=== PATIENT | male | born 1950 | race Two or more races ===

== ENCOUNTER 2025-02-02 17:17 | Inpatient (IN) | payer OTHER ==
[~2025-02-02] VITALS: Ht 170.2 cm; Wt 77.1 kg
[2025-02-02] MEDS ORDERED: LASIX20 MG (17:29)
[2025-02-02] MEDS ORDERED: ALDACTONE25 MG (17:29)
[2025-02-02] MEDS ORDERED: AMLODIPINE-OLM1 EAC2 (17:29)
[2025-02-02] MEDS ORDERED: NORVASC2.5 M1 (17:29)
--- NOTE | 2025-02-02 17:32 | NUR ---
PTE ALERTA Y ORIENTADO X 3 ESFERAS EN [place] EN COMPANIA DE FAMILIAR QUIEN REFIERE PIES HINCHADOS Y FALTA DE AIRE,REFIRE NO THORNTON EVACUADO HAC 30 RUBY Y NAUSEAS.SE OBSERVAN PIES CON EDEMA Y PIEL ABIERTA EN AMBOS PIES.PTE ESTUVO HOSPITALIZADO EN [facility] EN DONDE PTE REHUSO [place] MEDICO YA QUE REFIERE DREW NO LE HACIAN NADA.REFIERE LE COLOCARON MARCAPASO EL Dec EN [place].
[2025-02-02] MEDS ORDERED: CEFTRIAXONE SODIUM 1,000 MG VIAL IV ONE (18:00)
[2025-02-02] MEDS ORDERED: CEFTRIAXONE SODIUM 1,000 MG VIAL ONE (18:04)
[2025-02-02] MEDS ORDERED: ONDANSETRON HCL 2 MG/ML VIAL ONE (18:21)
[2025-02-02] MEDS ORDERED: FAMOTIDINE/PF 20 MG/2 ML VIAL ONE (18:21)
[2025-02-02 18:25] LABS: HEMATOCRIT 36.1 % (39.0-48.0); HEMOGLOBIN 12.2 g/dL (13-16.00); MEAN CELL VOLUME 105.7 fL (80.0-100.00); MEAN CORPUSCULAR HEMOGLOBIN 35.7 pg (27.00-32.0); MEAN CORPUSCULAR HGB CONC 33.8 g/dl (32.0-36.0); RED BLOOD COUNT 3.41 M/uL (4.00-6.00); RED CELL DISTRIBUTION WIDTH 17.9 % (11.5-14.5)
[2025-02-02 18:28] LABS: ERYTHROCYTE SEDIMENTATION RATE 101 mm/hr; PLATELET COUNT 111 K/uL (150-450)
[2025-02-02] MEDS ORDERED: ONDANSETRON HCL 2 MG/ML VIAL IV ONE (18:30)
[2025-02-02] MEDS ORDERED: FAMOtidine 10 MG/ML (4ML VIAL) IV ONE (18:30)
--- NOTE | 2025-02-02 18:32 | NUR ---
SE EDUCA A PTE SOBRE [place] MEDICO, SE JOSE MUESTRAS DE LABORATORIO UTILIZANDO MEDIDAS ASEPTICAS. SE COLOCA H/L ALIVIA DE EDEMA. SE ADMINISTRAN MEDICAMENTOS ISMAEL ORDEN MEDICA. SE NOTIFICA RX Y CT PENDIENTES A REALIZAR.
[2025-02-02 18:49] LABS: INR 1.52; PARTIAL THROMBOPLASTIN TIME 32.9 SECONDS (22.0-34.0)
[2025-02-02 18:50] LABS: BILIRUBIN TOTAL 4.07 mg/dL (0.3-1.2); CALCIUM 9.4 mg/dL (8.5-10.1); CREATININE SERUM 3.16 mg/dL (0.70-1.30); GFR 19.31; GLOBULINA 5.2 G/DL (2.4-3.5); POTASSIUM 4.27 mEq/L (3.5-5.1); TOTAL PROTEIN 7.2 gm/dL (6.4-8.2)
[2025-02-02 18:52] LABS: C-REACTIVE PROTEIN 2.01 MG/DL (0.00-0.29)
[2025-02-02 18:52] LABS: PH,URINE 5.5 (5.0-8.0); URINE APPEARANCE Cloudy; URINE BILIRRUBIN Small (NEGATIVE); URINE BLOOD Trace; URINE COLOR Dark Yellow; URINE GLUCOSE Negative (NEGATIVE); URINE KETONE Negative (NEGATIVE); URINE LEUKOCYTE Trace; URINE NITRATE Negative; URINE PROTEIN 30 (NEGATIVE)
[2025-02-02 18:56] LABS: URINE BACTERIA 23.2 uL (0.0-1933); URINE CAST 4.12 uL (0.0-1.40); URINE EPITHELIAL CELLS 18.9 uL (0.0-38.8); URINE RBC 5.4 uL (0.0-20.8); URINE WBC 16.3 uL (0.0-23.2)
[2025-02-02 19:10] LABS: PROTHROMBIN TIME 16.1 SECONDS (9.0-11.5)
[2025-02-02 19:34] LABS: URINE CRYSTALS FEW /HPF
[2025-02-02 19:35] LABS: URINE MUCUS SCANT; URINE YEAST FEW /hpf
[2025-02-02] MEDS ORDERED: CEFTRIAXONE SODIUM 2,000 MG in 0.9 % SODIUM CHLORIDE 100 ML IV SCH (23:43)
[2025-02-02] MEDS ORDERED: LACTULOSE 10 G/15 ML ML PO SCH (23:43)
[2025-02-02] MEDS ORDERED: PANTOPRAZOLE SODIUM 40 MG/VIAL VIAL IV SCH (23:44)
[2025-02-02] MEDS ORDERED: FUROsemide 20 MG/2 ML VIAL IV SCH (23:44)
[2025-02-02] MEDS ORDERED: ONDANSETRON HCL 4 MG in 0.9 % SODIUM CHLORIDE 50 ML IV PRN (23:45)
[2025-02-03] MEDS ORDERED: FUROsemide 20 MG/2 ML VIAL ONE (00:23)
[2025-02-03] MEDS ORDERED: CEFTRIAXONE SODIUM 1,000 MG VIAL ONE (00:23)
[2025-02-03] MEDS ORDERED: LACTULOSE 20 G/30 ML BLIST.PACK ONE (00:23)
[2025-02-03 01:03] VITALS: BP 147/67; O2SAT 96
[2025-02-03 01:22] LABS: ALBUMIN 1.7 gm/dL (3.4-5.0); BILIRUBIN TOTAL 3.61 mg/dL (0.3-1.2); BILIRUBIN,CONJUGATED 2.64 mg/dL (0.0-0.2); BILIRUBIN,UNCONJUGATED 0.97 mg/dL (0.0-0.6); MAGNESIUM 2.1 mg/dL (1.8-2.4); TOTAL PROTEIN 6.5 gm/dL (6.4-8.2)
[2025-02-03 06:48] VITALS: BP 135/83
[2025-02-03] MEDS ORDERED: MINERAL OIL 30 ML BLIST.PACK PO STA (07:30)
[2025-02-03] MEDS ORDERED: LACTULOSE 20 G/30 ML BLIST.PACK PO STA (07:30)
[2025-02-03] MEDS ORDERED: MAGNESIUM HYDROXIDE 30 ML BLIST.PACK PO STA (07:31)
[2025-02-03 08:45] VITALS: BP 128/76
[2025-02-03] MEDS ORDERED: POLYETHYLENE GLYCOL 3350 17 GM BLIST.PACK PO SCH (09:00)
[2025-02-03] MEDS ORDERED: SPIRONOLACTONE 25 MG TABLET PO SCH (09:00)
[2025-02-03] MEDS ORDERED: FUROsemide 20 MG/2 ML VIAL IV SCH (12:33)
[2025-02-03] MEDS ORDERED: ALBUMIN HUMAN 0.25GM/ML (50ML) VIAL IV SCH (12:34)
[2025-02-03] MEDS ORDERED: TRAMADOL HCL 50 MG TABLET PO PRN (16:00)
[2025-02-03 17:10] VITALS: BP 127/84; O2SAT 100
[2025-02-04 00:10] VITALS: BP 104/72
[2025-02-04 06:18] LABS: HEMATOCRIT 30.8 % (39.0-48.0); HEMOGLOBIN 10.7 g/dL (13-16.00); MEAN CELL VOLUME 104.6 fL (80.0-100.00); MEAN CORPUSCULAR HEMOGLOBIN 36.3 pg (27.00-32.0); MEAN CORPUSCULAR HGB CONC 34.7 g/dl (32.0-36.0); RED BLOOD COUNT 2.95 M/uL (4.00-6.00); RED CELL DISTRIBUTION WIDTH 17.8 % (11.5-14.5)
[2025-02-04 06:49] LABS: PLATELET COUNT 103 K/uL (150-450)
[2025-02-04 06:55] LABS: ALBUMIN 2.2 gm/dL (3.4-5.0); BILIRUBIN TOTAL 3.98 mg/dL (0.3-1.2); CALCIUM 8.9 mg/dL (8.5-10.1); CREATININE SERUM 3.25 mg/dL (0.70-1.30); GFR 18.69; GLOBULINA 4.4 G/DL (2.4-3.5); MAGNESIUM 2.6 mg/dL (1.8-2.4); PHOSPHOROUS 4.6 mg/dL (2.5-4.9); POTASSIUM 5.05 mEq/L (3.5-5.1); TOTAL PROTEIN 6.6 gm/dL (6.4-8.2)
[2025-02-04 08:47] VITALS: BP 125/81; O2SAT 95
[2025-02-04] MEDS ORDERED: LACTULOSE 20 G/30 ML BLIST.PACK PO SCH (09:00)
[2025-02-04 17:10] VITALS: BP 135/83; O2SAT 96
[2025-02-04 20:43] LABS: BILI PERITONEAL FLUID 0.53 mg/dl; TP PERITONEAL FLUID 0.9 g/dl
[2025-02-05 01:09] VITALS: BP 134/77
[2025-02-05 05:43] LABS: HEMATOCRIT 31.5 % (39.0-48.0); HEMOGLOBIN 10.5 g/dL (13-16.00); MEAN CELL VOLUME 106.1 fL (80.0-100.00); MEAN CORPUSCULAR HEMOGLOBIN 35.3 pg (27.00-32.0); MEAN CORPUSCULAR HGB CONC 33.3 g/dl (32.0-36.0); RED BLOOD COUNT 2.97 M/uL (4.00-6.00); RED CELL DISTRIBUTION WIDTH 17.4 % (11.5-14.5)
[2025-02-05 06:28] LABS: ALBUMIN 2.6 gm/dL (3.4-5.0); BILIRUBIN TOTAL 3.75 mg/dL (0.3-1.2); CALCIUM 8.8 mg/dL (8.5-10.1); CREATININE SERUM 3.43 mg/dL (0.70-1.30); GFR 17.57; GLOBULINA 4.2 G/DL (2.4-3.5); POTASSIUM 5.29 mEq/L (3.5-5.1); TOTAL PROTEIN 6.8 gm/dL (6.4-8.2)
[2025-02-05 07:20] LABS: PLATELET COUNT 105 K/uL (150-450)
[2025-02-05 09:42] VITALS: BP 140/76; O2SAT 97
[2025-02-05 18:01] LABS: ALBUMIN 2.6 gm/dL (3.4-5.0); BILIRUBIN TOTAL 3.14 mg/dL (0.3-1.2); CALCIUM 8.8 mg/dL (8.5-10.1); CREATININE SERUM 3.47 mg/dL (0.70-1.30); GFR 17.33; GLOBULINA 4.6 G/DL (2.4-3.5); POTASSIUM 4.29 mEq/L (3.5-5.1); TOTAL PROTEIN 7.2 gm/dL (6.4-8.2)
[2025-02-05 18:11] VITALS: BP 135/80
[2025-02-05 19:23] LABS: PLEURAL FLUID APPEARANCE CLOUDY; PLEURAL FLUID COLOR YELLOW
[2025-02-05 20:52] LABS: MONONUCLEAR 97 %; POLYMORPHONUCLEAR 3 %
[2025-02-06 02:39] VITALS: BP 124/75; O2SAT 96
[2025-02-06 08:51] LABS: ALBUMIN 2.3 gm/dL (3.4-5.0); BILIRUBIN TOTAL 3.12 mg/dL (0.3-1.2); CALCIUM 8.6 mg/dL (8.5-10.1); CREATININE SERUM 3.21 mg/dL (0.70-1.30); GFR 18.96; GLOBULINA 4.4 G/DL (2.4-3.5); POTASSIUM 4.32 mEq/L (3.5-5.1); TOTAL PROTEIN 6.7 gm/dL (6.4-8.2)
[2025-02-06 09:01] VITALS: BP 148/74; O2SAT 96
== END 2025-02-06 12:54 | disposition home or self-care (01) | DRG 435 ==
LOC: ER 17:20 → MEDJ 23:45
PROVIDERS: General Practice; Internal Medicine; Radiology Vascular & Interventional Radiology; ADMIT Internal Medicine; ATTEND Internal Medicine
PROC: BW21ZZZ Computerized Tomography (CT Scan) of Abdomen and Pelvis (ICD-10-PCS; 2025-02-02)
PROC: BT4JZZZ Ultrasonography of Kidneys and Bladder (ICD-10-PCS; 2025-02-02)
PROC: 4A12X4Z Monitoring of Cardiac Electrical Activity, External Approach (ICD-10-PCS; 2025-02-03)
PROC: 0W9G3ZX Drainage of Peritoneal Cavity, Percutaneous Approach, Diagnostic (ICD-10-PCS; principal; 2025-02-04)
PROC: 0W993ZX Drainage of Right Pleural Cavity, Percutaneous Approach, Diagnostic (ICD-10-PCS; 2025-02-05)
DX: C22.9 Malignant neoplasm of liver, not specified as primary or secondary (principal); K76.7 Hepatorenal syndrome; R18.8 Other ascites; N17.9 Acute kidney failure, unspecified; L03.115 Cellulitis of right lower limb; I50.20 Unspecified systolic (congestive) heart failure; J90 Pleural effusion, not elsewhere classified; K92.2 Gastrointestinal hemorrhage, unspecified; N18.9 Chronic kidney disease, unspecified; G47.33 Obstructive sleep apnea (adult) (pediatric); Z95.0 Presence of cardiac pacemaker; F10.20 Alcohol dependence, uncomplicated; F17.200 Nicotine dependence, unspecified, uncomplicated

== ENCOUNTER 2025-02-12 15:45 | Inpatient (IN) | payer OTHER ==
[~2025-02-12] VITALS: Ht 177.8 cm; Wt 63.5 kg
[~2025-02-12 15:45] MED LIST: ALDACTONE25 MG; AMLODIPINE-OLM1 EAC2; LASIX20 MG; NORVASC2.5 M1
[2025-02-12] MEDS ORDERED: PROTONIX20 MG (15:54)
[2025-02-12] MEDS ORDERED: CRESTOR40 MG (15:54)
[2025-02-12] MEDS ORDERED: COZAAR25 MG (15:54)
[2025-02-12] MEDS ORDERED: LEVOTHYROXINE25 MCG (15:55)
--- NOTE | 2025-02-12 15:55 | NUR ---
SE RECIBE PTE EN AMBULANCIA ALERTA Y ORIENTADO X3, REFIERE ULCERAS CON SANGRADO EN AMBOS PIES Y EDEMA. SE JOSE SV Y SE UBICA
[2025-02-12] MEDS ORDERED: CEFTRIAXONE SODIUM 1,000 MG VIAL IV ONE (16:30)
[2025-02-12] MEDS ORDERED: CEFTRIAXONE SODIUM 1,000 MG VIAL ONE (17:02)
[2025-02-12 17:05] LABS: HEMATOCRIT 33.2 % (39.0-48.0); HEMOGLOBIN 11.2 g/dL (13-16.00); MEAN CORPUSCULAR HEMOGLOBIN 35.4 pg (27.00-32.0); MEAN CORPUSCULAR HGB CONC 33.8 g/dl (32.0-36.0); RED BLOOD COUNT 3.16 M/uL (4.00-6.00); RED CELL DISTRIBUTION WIDTH 16.5 % (11.5-14.5)
[2025-02-12 17:06] LABS: PLATELET COUNT 109 K/uL (150-450)
--- NOTE | 2025-02-12 17:17 | NUR ---
SE EJECUTAN ORDENES MEDICAS EN ESCALANTE TOTALIDAD
[2025-02-12 17:28] LABS: ALBUMIN 2.2 gm/dL (3.4-5.0); BILIRUBIN TOTAL 3.67 mg/dL (0.3-1.2); BILIRUBIN,CONJUGATED 2.52 mg/dL (0.0-0.2); BILIRUBIN,UNCONJUGATED 1.15 mg/dL (0.0-0.6); CALCIUM 8.2 mg/dL (8.5-10.1); CREATININE SERUM 3.15 mg/dL (0.70-1.30); GFR 19.38; GLOBULINA 5.2 G/DL (2.4-3.5); POTASSIUM 3.98 mEq/L (3.5-5.1); TOTAL PROTEIN 7.4 gm/dL (6.4-8.2)
[2025-02-12 17:32] LABS: INR 1.69; PARTIAL THROMBOPLASTIN TIME 37.5 SECONDS (22.0-34.0)
[2025-02-12 17:33] LABS: PROTHROMBIN TIME 17.7 SECONDS (9.0-11.5)
[2025-02-12] MEDS ORDERED: ALBUMIN HUMAN-25 0.25GM/ML (50ML) VIAL IV SCH (20:15)
[2025-02-12] MEDS ORDERED: PIPERACILLIN/TAZOBACTAM SODIUM 2.25 GM in DEXTROSE 5 % IN WATER 50 ML IV SCH (20:16)
[2025-02-12] MEDS ORDERED: POLYETHYLENE GLYCOL 3350 17 GM BLIST.PACK PO ONE (20:30)
[2025-02-12] MEDS ORDERED: FUROsemide 20 MG/2 ML VIAL IV SCH (21:00)
[2025-02-13 00:49] LABS: PH,URINE 5.5 (5.0-8.0); URINE APPEARANCE Clear; URINE BILIRRUBIN Negative (NEGATIVE); URINE BLOOD Negative; URINE COLOR Dark Yellow; URINE KETONE Negative (NEGATIVE); URINE LEUKOCYTE Trace; URINE NITRATE Negative; URINE PROTEIN Negative (NEGATIVE); URINE UROBILINOGEN 0.2 E.U./dl
[2025-02-13 00:52] LABS: URINE BACTERIA 94.2 uL (0.0-1933); URINE RBC 212.1 uL (0.0-20.8); URINE WBC 9.8 uL (0.0-23.2)
[2025-02-13 00:59] LABS: URINE CAST 1.03 uL (0.0-1.40); URINE GLUCOSE >=1000 MG/DL (NEGATIVE); URINE YEAST MANY /hpf
[2025-02-13 02:34] VITALS: BP 130/70; O2SAT 100
[2025-02-13 08:12] VITALS: BP 121/77; O2SAT 96
[2025-02-13] MEDS ORDERED: SPIRONOLACTONE 25 MG TABLET PO SCH (09:00)
[2025-02-13] MEDS ORDERED: AMLODIPINE BESYLATE 5 MG TABLET PO SCH (09:00)
[2025-02-13] MEDS ORDERED: FAMOTIDINE/PF 20 MG in 0.9 % SODIUM CHLORIDE 8 ML IV PUSH SCH (09:00)
[2025-02-13 17:38] VITALS: BP 140/80
[2025-02-13] MEDS ORDERED: LACTULOSE 20 G/30 ML BLIST.PACK PO STA (19:42)
[2025-02-14] MEDS ORDERED: LACTULOSE 20 G/30 ML BLIST.PACK PO SCH (01:00)
[2025-02-14 01:34] VITALS: BP 155/71; O2SAT 97
[2025-02-14 08:14] VITALS: BP 135/78; O2SAT 97
== END 2025-02-14 13:47 | disposition home or self-care (01) | DRG 637 ==
LOC: ER 15:45 → MEDI 20:56
PROVIDERS: General Practice; ADMIT Internal Medicine; ATTEND Internal Medicine
PROC: BW40ZZZ Ultrasonography of Abdomen (ICD-10-PCS; 2025-02-12)
PROC: 0W9G3ZZ Drainage of Peritoneal Cavity, Percutaneous Approach (ICD-10-PCS; principal; 2025-02-13)
DX: E11.621 Type 2 diabetes mellitus with foot ulcer (principal); K76.7 Hepatorenal syndrome; C22.9 Malignant neoplasm of liver, not specified as primary or secondary; N17.9 Acute kidney failure, unspecified; K70.31 Alcoholic cirrhosis of liver with ascites; Z79.4 Long term (current) use of insulin; I10 Essential (primary) hypertension; K70.11 Alcoholic hepatitis with ascites; L97.529 Non-pressure chronic ulcer of other part of left foot with unspecified severity; L97.519 Non-pressure chronic ulcer of other part of right foot with unspecified severity; I87.2 Venous insufficiency (chronic) (peripheral)

== ENCOUNTER 2025-02-21 15:02 | Inpatient (IN) | payer OTHER ==
[~2025-02-21] VITALS: Ht 152.4 cm; Wt 63.5 kg
[~2025-02-21 15:02] MED LIST changes: +COZAAR25 MG; +CRESTOR40 MG; +LEVOTHYROXINE25 MCG; +PROTONIX20 MG
--- NOTE | 2025-02-21 15:13 | NUR ---
SE RECIBE PTE ALERTA Y ORIENTADO X3 EN AMBULANCIA EL CUAL REFIERE VENIR POR VOMITOS X4, DOLOR ABDOMINAL Y DEBILIDAD DESDE HACE 4 RUBY. SE MIDEN S/V A PTE Y SE UBICA.
--- NOTE | 2025-02-21 16:55 | NUR ---
MR. WILSON EDUCA A PTE SOBRE [place] MEDICO, SE JOSE MUESTRAS DE LABORATORIO UTILIZANDO MEDIDAS ASEPITCAS. SE COLOCA H/L ALIVIA DE EDEMA. SE NOTIFICA RX PENDIENTE A REALIZAR. SE REALIZA EKG A PTE ISMAEL ORDEN MEDICA.
[2025-02-21 17:07] LABS: HEMATOCRIT 32.1 % (39.0-48.0); HEMOGLOBIN 10.9 g/dL (13-16.00); MEAN CELL VOLUME 101.2 fL (80.0-100.00); MEAN CORPUSCULAR HEMOGLOBIN 34.2 pg (27.00-32.0); MEAN CORPUSCULAR HGB CONC 33.8 g/dl (32.0-36.0); RED BLOOD COUNT 3.17 M/uL (4.00-6.00); RED CELL DISTRIBUTION WIDTH 15.9 % (11.5-14.5)
[2025-02-21 17:11] LABS: PLATELET COUNT 96 K/uL (150-450)
[2025-02-21 17:30] LABS: PH,URINE 5.5 (5.0-8.0); URINE APPEARANCE Clear; URINE BILIRRUBIN Negative (NEGATIVE); URINE BLOOD Negative; URINE COLOR Dark Yellow; URINE KETONE Negative (NEGATIVE); URINE LEUKOCYTE Trace; URINE NITRATE Negative; URINE PROTEIN Trace (NEGATIVE)
[2025-02-21 17:33] LABS: ALBUMIN 2.2 gm/dL (3.4-5.0); BILIRUBIN TOTAL 4.38 mg/dL (0.3-1.2); BILIRUBIN,CONJUGATED 3.06 mg/dL (0.0-0.2); BILIRUBIN,UNCONJUGATED 1.32 mg/dL (0.0-0.6); CALCIUM 8.4 mg/dL (8.5-10.1); CREATININE SERUM 2.66 mg/dL (0.70-1.30); GFR 23.55; GLOBULINA 4.6 G/DL (2.4-3.5); POTASSIUM 4.58 mEq/L (3.5-5.1); TOTAL PROTEIN 6.8 gm/dL (6.4-8.2)
[2025-02-21 17:34] LABS: URINE BACTERIA 134.6 uL (0.0-1933); URINE CAST 1.47 uL (0.0-1.40); URINE RBC 414.5 uL (0.0-20.8); URINE WBC 24.5 uL (0.0-23.2)
[2025-02-21 17:35] LABS: INR 1.88
[2025-02-21 18:08] LABS: URINE GLUCOSE >=1000 MG/DL (NEGATIVE)
[2025-02-21 18:09] LABS: URINE CRYSTALS FEW /HPF
[2025-02-21 18:13] LABS: PROTHROMBIN TIME 19.6 SECONDS (9.0-11.5)
[2025-02-21 18:14] LABS: PARTIAL THROMBOPLASTIN TIME 39.9 SECONDS (22.0-34.0)
--- NOTE | 2025-02-22 07:11 | NUR ---
SE RECIBE PTE MASCULINO DE 74 YRS ALERTA CONCIENTE Y TRANQUILA EN COMPANIA DE FAMILIAR./ PTE AL MOMENTO ALIVIA DE DOLOR Y SE MANTIENE CONSULTADO CON MEDICO INTERNISTA. SE LE SADIE S/V Y SE MANTIENE BAJO OBSERVACION.
[2025-02-22] MEDS ORDERED: CEFTRIAXONE SODIUM 1,000 MG VIAL IV SCH (10:58)
[2025-02-22] MEDS ORDERED: AZITHROMYCIN 500 MG VIAL IV SCH (10:59)
[2025-02-22] MEDS ORDERED: MORPHINE SULFATE 4 MG/ML CARTRIDGE IV PRN (11:00)
[2025-02-22] MEDS ORDERED: 0.9 % SODIUM CHLORIDE 1,000 ML IV SCH (11:00)
[2025-02-22] MEDS ORDERED: PANTOPRAZOLE SODIUM 40 MG in 0.9 % SODIUM CHLORIDE 8 ML IV PUSH SCH (11:04)
[2025-02-22] MEDS ORDERED: AMLODIPINE BESYLATE 5 MG TABLET PO SCH (11:10)
[2025-02-22] MEDS ORDERED: FUROsemide 20 MG/2 ML VIAL IV SCH (11:10)
[2025-02-22] MEDS ORDERED: SPIRONOLACTONE 25 MG TABLET PO SCH (11:11)
[2025-02-22] MEDS ORDERED: FUROsemide 20 MG/2 ML VIAL ONE (11:38)
[2025-02-22] MEDS ORDERED: AZITHROMYCIN 500 MG VIAL IV ONE (11:39)
[2025-02-22] MEDS ORDERED: CEFTRIAXONE SODIUM 1,000 MG VIAL ONE (11:39)
[2025-02-22 11:47] VITALS: BP 114/70
[2025-02-22 12:28] LABS: ALBUMIN 2.2 gm/dL (3.4-5.0); CALCIUM 8.3 mg/dL (8.5-10.1); CREATININE SERUM 2.84 mg/dL (0.70-1.30); GFR 21.84; PHOSPHOROUS 4.1 mg/dL (2.5-4.9); POTASSIUM 5.4 mEq/L (3.5-5.1)
[2025-02-22 12:32] LABS: C-REACTIVE PROTEIN 3.49 MG/DL (0.00-0.29)
[2025-02-22 12:47] LABS: ABG PH 7.511 (7.35-7.45); ABG PO2 64.7 mmHg (80-100); ABG pCO2 29.7 mmHg (35-45); BASE EXCESS 1.3 mmol/l; BICARBONATE 23.2 mmol/l (23-25); SaO2 94.6 %; Tco2 24.1 mmol/l
[2025-02-22 14:39] VITALS: BP 114/77; O2SAT 95
[2025-02-22 15:39] LABS: allen test SATISFACTORY; mode ROOM AIR; o2 21 %; puncture site RADIAL LEFT
[2025-02-22 18:28] VITALS: BP 143/78
[2025-02-23 02:20] VITALS: BP 114/61; O2SAT 97
[2025-02-23 07:45] LABS: MEAN CELL VOLUME 100.8 fL (80.0-100.00); MEAN CORPUSCULAR HEMOGLOBIN 34.4 pg (27.00-32.0); MEAN CORPUSCULAR HGB CONC 34.1 g/dl (32.0-36.0); RED BLOOD COUNT 2.87 M/uL (4.00-6.00); RED CELL DISTRIBUTION WIDTH 16.2 % (11.5-14.5)
[2025-02-23 07:54] LABS: HEMOGLOBIN 9.9 g/dL (13-16.00); PLATELET COUNT 97 K/uL (150-450)
[2025-02-23 08:23] LABS: CALCIUM 8.7 mg/dL (8.5-10.1); CREATININE SERUM 2.92 mg/dL (0.70-1.30); GFR 21.15; POTASSIUM 5.44 mEq/L (3.5-5.1)
[2025-02-23] MEDS ORDERED: AZITHROMYCIN 500 MG VIAL IV ONE (08:57)
[2025-02-23] MEDS ORDERED: FUROsemide 20 MG/2 ML VIAL IV SCH (09:00)
[2025-02-23 09:33] VITALS: BP 124/80; O2SAT 93
[2025-02-23 16:34] VITALS: BP 124/77; O2SAT 97
[2025-02-24 02:40] VITALS: BP 114/68; O2SAT 98
[2025-02-24] MEDS ORDERED: AZITHROMYCIN 500 MG VIAL IV ONE (07:31)
[2025-02-24 08:39] VITALS: BP 151/83
[2025-02-24 16:58] VITALS: BP 119/55; O2SAT 97
[2025-02-25 02:23] VITALS: BP 116/75; O2SAT 96
[2025-02-25 09:02] VITALS: BP 123/78; O2SAT 96
[2025-02-25] MEDS ORDERED: ONDANSETRON HCL 2 MG/ML VIAL IV STA (09:12)
[2025-02-25] MEDS ORDERED: ONDANSETRON HCL 2 MG/ML VIAL IV NR (09:15)
[2025-02-25] MEDS ORDERED: ZOFRAN8 MG PO (13:50)
[2025-02-25 17:44] VITALS: BP 150/85; O2SAT 96
[2025-02-26 01:53] VITALS: BP 115/69; O2SAT 94
[2025-02-26 08:37] VITALS: BP 118/61; O2SAT 97
[2025-02-26 09:31] LABS: HEMATOCRIT 28.3 % (39.0-48.0); MEAN CORPUSCULAR HEMOGLOBIN 34.6 pg (27.00-32.0); MEAN CORPUSCULAR HGB CONC 35.3 g/dl (32.0-36.0); RED BLOOD COUNT 2.89 M/uL (4.00-6.00); RED CELL DISTRIBUTION WIDTH 16.2 % (11.5-14.5)
[2025-02-26 09:33] LABS: PLATELET COUNT 101 K/uL (150-450)
[2025-02-26 10:38] LABS: ALBUMIN 1.9 gm/dL (3.4-5.0); BILIRUBIN TOTAL 5.43 mg/dL (0.3-1.2); CALCIUM 8.8 mg/dL (8.5-10.1); GFR 13.9; GLOBULINA 4.4 G/DL (2.4-3.5); POTASSIUM 5.22 mEq/L (3.5-5.1); TOTAL PROTEIN 6.3 gm/dL (6.4-8.2)
[2025-02-26 10:53] LABS: CREATININE SERUM 4.2 mg/dL (0.70-1.30)
[2025-02-26 10:58] LABS: ABG PH 7.493 (7.35-7.45); ABG PO2 94.7 mmHg (80-100); ABG pCO2 20.7 mmHg (35-45); BASE EXCESS -5.2 mmol/l; BICARBONATE 15.5 mmol/l (23-25); SaO2 97.9 %; Tco2 16.2 mmol/l; allen test SATISFACTORY; mode NASAL CANNULA; o2 28 %; puncture site RADIAL LEFT
[2025-02-26] MEDS ORDERED: IPRATROPIUM BROMIDE 0.5 MG/2.5 ML AMPUL.NEB IH SCH (13:00)
[2025-02-26] MEDS ORDERED: MEROPENEM 1,000 MG in 0.9 % SODIUM CHLORIDE 100 ML IV SCH (14:51)
[2025-02-26] MEDS ORDERED: MEROPENEM 500 MG/VIAL VIAL IV SCH (17:00)
[2025-02-26 17:58] VITALS: BP 90/60; O2SAT 100
[2025-02-27 02:30] VITALS: BP 73/40; O2SAT 99
[2025-02-27 03:05] VITALS: BP 80/60
[2025-02-27] MEDS ORDERED: IPRATROPIUM BROMIDE 0.5 MG/2.5 ML AMPUL.NEB IH SCH (09:00)
[2025-02-27] MEDS ORDERED: FUROsemide 20 MG/2 ML VIAL IV SCH (09:00)
[2025-02-27 15:06] LABS: ALBUMIN 1.6 gm/dL (3.4-5.0); BILIRUBIN TOTAL 4.76 mg/dL (0.3-1.2); CALCIUM 8.7 mg/dL (8.5-10.1); GLOBULINA 3.3 G/DL (2.4-3.5); TOTAL PROTEIN 4.9 gm/dL (6.4-8.2)
[2025-02-27 16:28] LABS: GFR 10.84
[2025-02-27 16:29] LABS: POTASSIUM 6.11 mEq/L (3.5-5.1)
[2025-02-27 16:30] VITALS: BP 64/33; O2SAT 100
[2025-02-27 16:30] LABS: CREATININE SERUM 5.21 mg/dL (0.70-1.30)
[2025-02-27] MEDS ORDERED: SODIUM BICARBONATE 1 MEQ/ML DISP.SYRIN 50ML IV STA (16:33)
[2025-02-27] MEDS ORDERED: SODIUM BICARBONATE 50MEQ/50ML VIAL IV STA (16:42)
[2025-02-27] MEDS ORDERED: SODIUM BICARBONATE 1 MEQ/ML DISP.SYRIN 50ML IV ONE (16:45)
[2025-02-27] MEDS ORDERED: SODIUM BICARBONATE 100 MEQ in DEXTROSE 5 % IN WATER 250 ML IV SCH (16:45)
[2025-02-27] MEDS ORDERED: NOREPINEPHRINE BITARTRATE 1 MG/ML AMPUL IV ONE (17:07)
[2025-02-27 17:30] VITALS: BP 122/70; O2SAT 96
[2025-02-27] MEDS ORDERED: NOREPINEPHRINE BITARTRATE 1 MG/ML AMPUL IV SCH (17:45)
[2025-02-27] MEDS ORDERED: SODIUM POLYSTYRENE SULFONATE 30G/8 TSP PO SCH (20:00)
[2025-02-27 22:22] VITALS: O2SAT 96
[2025-02-28 00:30] VITALS: BP 86/64; O2SAT 97
[2025-02-28 01:33] VITALS: O2SAT 89
[2025-02-28 01:50] VITALS: BP 108/58
[2025-02-28 06:26] VITALS: O2SAT 90
[2025-02-28 08:40] VITALS: O2SAT 96
[2025-02-28 09:16] VITALS: BP 92/59; O2SAT 98
[2025-02-28] MEDS ORDERED: HYDROCORTISONE SODIUM SUCC/PF 50 MG/ML ML IV STA (11:49)
[2025-02-28] MEDS ORDERED: NOREPINEPHRINE BITARTRATE 1 MG/ML AMPUL IV ONE (11:58)
[2025-02-28] MEDS ORDERED: NOREPINEPHRINE BITARTRATE 8 MG in DEXTROSE 5 % IN WATER 250 ML IV SCH (12:00)
[2025-02-28] MEDS ORDERED: EPINEPHRINE HCL/PF 4 MG in DEXTROSE 5 % IN WATER 250 ML IV SCH (12:45)
[2025-02-28] MEDS ORDERED: CEFTRIAXONE SODIUM 2,000 MG in 0.9 % SODIUM CHLORIDE 100 ML IV NR (13:00)
[2025-02-28] MEDS ORDERED: HYDROCORTISONE SODIUM SUCC/PF 50 MG/ML ML IV SCH (21:00)
[2025-03-01] MEDS ORDERED: CEFTRIAXONE SODIUM 2,000 MG in 0.9 % SODIUM CHLORIDE 100 ML IV SCH (09:00)
== END 2025-02-28 22:17 | disposition expired | DRG 441 ==
LOC: ER 15:02 → MEDJ 02-22 12:05
PROVIDERS: Emergency Medicine; General Practice; Internal Medicine; Student in an Organized Health Care Education/Training Program; ADMIT Internal Medicine; ATTEND Internal Medicine
PROC: BW21ZZZ Computerized Tomography (CT Scan) of Abdomen and Pelvis (ICD-10-PCS; principal; 2025-02-21)
PROC: BB24ZZZ Computerized Tomography (CT Scan) of Bilateral Lungs (ICD-10-PCS; 2025-02-22)
PROC: 0W9G3ZZ Drainage of Peritoneal Cavity, Percutaneous Approach (ICD-10-PCS; 2025-02-23)
PROC: 0W993ZZ Drainage of Right Pleural Cavity, Percutaneous Approach (ICD-10-PCS; 2025-02-24)
PROC: 3E0F7GC Introduction of Other Therapeutic Substance into Respiratory Tract, Via Natural or Artificial Opening (ICD-10-PCS; 2025-02-26)
PROC: 4A12X4Z Monitoring of Cardiac Electrical Activity, External Approach (ICD-10-PCS; 2025-02-27)
DX: K76.7 Hepatorenal syndrome (principal); J18.9 Pneumonia, unspecified organism; C22.9 Malignant neoplasm of liver, not specified as primary or secondary; Q44.6 Cystic disease of liver; N17.8 Other acute kidney failure; J90 Pleural effusion, not elsewhere classified; K70.31 Alcoholic cirrhosis of liver with ascites; K70.11 Alcoholic hepatitis with ascites; R60.0 Localized edema; D69.6 Thrombocytopenia, unspecified; I12.9 Hypertensive chronic kidney disease with stage 1 through stage 4 chronic kidney disease, or unspecified chronic kidney disease; E03.9 Hypothyroidism, unspecified